=== PATIENT | male | born 1960 | race Caucasian/White ===

== ENCOUNTER → 2016-08-14 | Outpatient (CLI) | payer MEDICARE ==
[~2016-08-14] MED LIST: ATOR40TA64 PO; CARV12.52 PO; CLOP75TA13 PO; DOCU-175 PO; ESCI10TA PO; IBUP-1547 PO; INSU100V SQ; INSU100V12 SQ; LISI-625 PO; METO25TA6 PO; MINO100C2 PO; MIRT45TA4 PO; OMEP20CA10 PO; OXYC-532 PO; WARF10TA4 PO
== END ==
LOC: NWCC 13:25
PROVIDERS: ATTEND Internal Medicine
DX: E11.621 Type 2 diabetes mellitus with foot ulcer (principal); L97.412 Non-pressure chronic ulcer of right heel and midfoot with fat layer exposed; L98.492 Non-pressure chronic ulcer of skin of other sites with fat layer exposed; I72.9 Aneurysm of unspecified site
CPT/HCPCS: 11042; A6209; A6260

== ENCOUNTER → 2016-08-28 | Outpatient (CLI) | payer MEDICARE | LOC: NWCC 08:27 | PROVIDERS: ATTEND Internal Medicine | DX: E11.621 Type 2 diabetes mellitus with foot ulcer (principal); L97.412 Non-pressure chronic ulcer of right heel and midfoot with fat layer exposed; L98.492 Non-pressure chronic ulcer of skin of other sites with fat layer exposed; I72.9 Aneurysm of unspecified site | CPT/HCPCS: 11042; A6209; G0463 ==

== ENCOUNTER → 2016-09-11 | Outpatient (CLI) | payer MEDICARE | LOC: NWCC 08:18 | PROVIDERS: ATTEND Internal Medicine | DX: E11.621 Type 2 diabetes mellitus with foot ulcer (principal); L97.412 Non-pressure chronic ulcer of right heel and midfoot with fat layer exposed; L98.492 Non-pressure chronic ulcer of skin of other sites with fat layer exposed; I72.8 Aneurysm of other specified arteries; E11.40 Type 2 diabetes mellitus with diabetic neuropathy, unspecified | CPT/HCPCS: 11042; A6210 ==

== ENCOUNTER → 2016-09-29 | Outpatient (CLI) | payer MEDICARE | LOC: NWCC 13:19 | PROVIDERS: ATTEND Internal Medicine | DX: E11.621 Type 2 diabetes mellitus with foot ulcer (principal); L97.412 Non-pressure chronic ulcer of right heel and midfoot with fat layer exposed; L98.499 Non-pressure chronic ulcer of skin of other sites with unspecified severity; I72.9 Aneurysm of unspecified site | CPT/HCPCS: 11042; A6021; G0463 ==

== ENCOUNTER → 2016-10-13 | Outpatient (CLI) | payer MEDICARE ==
[~2016-10-13] MED LIST changes: +CALMOSEPTINE OINTMENT 3.5 G PACKET TOP ONE; +SALINE FLUSH 10ml SYRINGE IVF ONE
== END ==
LOC: NWCC 14:27
PROVIDERS: ATTEND Internal Medicine
DX: E11.621 Type 2 diabetes mellitus with foot ulcer (principal); L97.412 Non-pressure chronic ulcer of right heel and midfoot with fat layer exposed; L98.499 Non-pressure chronic ulcer of skin of other sites with unspecified severity; L98.492 Non-pressure chronic ulcer of skin of other sites with fat layer exposed; I72.9 Aneurysm of unspecified site; E66.9 Obesity, unspecified; Z68.41 Body mass index [BMI] 40.0-44.9, adult
CPT/HCPCS: 11042; A6209; A6210; A9270; G0463